=== PATIENT | male | born 1980 | race Caucasian/White ===

== ENCOUNTER 2017-09-29 11:22 | Emergency (ER) | payer OTHER ==
[2017-09-29 11:25] VITALS: TEMP 37.1
[2017-09-29] MEDS ORDERED: KETOROLAC TROMETHAMINE 30 MG/ML VIAL IV STA (11:41)
[2017-09-29] MEDS ORDERED: ASPIRIN 81 MG CHEW PO STA (11:41)
[2017-09-29 12:13] LABS: BASO % 0.4 %; BASO ABS # 0.03 K/uL (0-0.2); COMPLETE YES; EOS % 3.7 %; HEMATOCRIT 45.6 % (42-52); IG% 0.4 %; LYMPH % 36.6 %; MEAN CELL VOLUME 84.8 fL (80-100); MEAN CORPUSCULAR HEMOGLOBIN 31.2 pg (25-34); MEAN CORPUSCULAR HGB CONC 36.8 g/dl (32-36); MEAN PLATELET VOLUME 10.8 fL (7.4-10.4); MONO % 5.9 %; PLATELET COUNT 158 K/uL (130-400); RED BLOOD COUNT 5.38 M/uL (4.7-6.1); WHITE BLOOD COUNT 7.93 K/uL (4.8-10.8)
[2017-09-29 12:32] LABS: BLOOD UREA NITROGEN 13 mg/dl (7-18); BUN/CREATININE RATIO 14.7 (10-20); CALCIUM 8.9 mg/dl (8.5-10.1); CARBON DIOXIDE 29 mmol/L (21-32); CHLORIDE 103 mmol/L (98-107); CREATININE 0.85 mg/dl (0.60-1.40); GLUCOSE 123 mg/dl (70-99); POTASSIUM 3.3 mmol/L (3.5-5.1); SODIUM 137 mmol/L (136-145)
--- NOTE | 2017-09-29 12:55 | DIAGNOSTIC IMAGING REPORT ---
CHEST ONE VIEW PORTABLE HISTORY: 37 years-old Male Chest Pain acute atypical chest pain COMPARISON: None available TECHNIQUE: Portable upright AP view of the chest FINDINGS: Cardiomediastinal and hilar silhouettes are within normal limits. No pneumothorax, pleural effusion, focal airspace consolidation or overt pulmonary edema. The bones of the chest are grossly intact. IMPRESSION: No acute cardiopulmonary process. The above report was generated using voice recognition software. It may contain grammatical, syntax or spelling errors. Electronically signed by: Bryant Rae M.D. 09/29/2017 12:53 PM Dictated Date/Time: 09/29/2017 12:53 PM
[2017-09-29 14:14] VITALS: BP 136/98; PULSE 96; O2SAT 99
--- NOTE | 2017-09-29 16:20 | EMERGENCY ROOM VISIT NOTE ---
History Report prepared by Waldo[place]savannah: Florence Montana Under the Supervision of: Dr. Hansel Chirinos D.O. First contact with patient: 11:28 Chief Complaint: CHEST PAIN Stated Complaint: CHEST PAIN, HARD TIME BREATHING, FAST HEARTRATE History of Present Illness The patient is a 37 year old male who presents to the Emergency Room with complaints of worsening left-sided chest pain that began 2 days ago. The patient is [place] speaking and the history is obtained with the help of his employer who acted as his spanish interpreter/translator. The patient has been feeling lightheaded for the past 2 days with pressure in his chest and intermittent palpitations. He has also been short of breath. Yesterday his symptoms worsened. The patient was unable to sleep throughout the night last night due to his symptoms. He notes that there is no change in his pain with exertion. He rates his current pain as a 7/10 in severity. Pt denies headache, change in vision, fevers, cough , cold symptoms, nausea, vomiting, abdominal pain, diarrhea, pain with urination , and melena. He denies any pain radiating into his arm or his jaw. He denies any modifying factors. He has never had symptoms like this before. The patient has a personal history of hypertension but has not been taking his medications for this. Patient denies diabetes, hyperlipidemia, CAD, history of sudden at a young age, and smoking. Patient denies swelling of calves, recent trips, history of immobilization or recent surgery, prior history of DVT, hemoptysis, history of malignancy, or control/estrogen use. Source of History: patient, other (employer) Onset: 2 days [employer] Position: chest (left) Symptom Intensity: 7/10 Quality: pressure Timing: worsening Associated Symptoms: + SOB, No fevers, No headache, No cough, No nausea, No vomiting, No abdominal pain, No melena, No diarrhea, No urinary symptoms Note: Pt reports lightheadedness and heart palpitations. Pt denies changes in vision, cold symptoms. Review of Systems See HPI for pertinent positives & negatives. A total of 10 systems reviewed and were otherwise negative. Past Medical & Surgical Medical Problems: (1) HTN (hypertension) Family History Diabetes mellitus FH: hyperlipidemia Social History Smoking Status: Never Smoker Occupation Status: employed Current/Historical Medications No Active Prescriptions or Reported Meds Allergies Coded Allergies: No Known Allergies (Unverified , 09/29/17) Physical Exam Vital Signs Date Time Temp Pulse Resp B/P (MAP) Pulse Ox O2 Delivery O2 Flow Rate FiO2 09/29/17 14:14 96 18 136/98 99 09/29/17 12:24 65 18 155/86 98 Room Air 09/29/17 12:09 74 09/29/17 11:43 79 18 155/99 98 Room Air 09/29/17 11:40 Room Air 09/29/17 11:25 37.1 75 16 168/98 99 Room Air Physical Exam GENERAL: Sitting up in bed, alert, well appearing, well nourished, no distress, non-toxic. [place] speaking. EYE EXAM: Normal conjunctiva. OROPHARYNX: no exudate, no erythema, lips, buccal mucosa, and tongue normal and mucous membranes are moist NECK: supple, no nuchal rigidity, no adenopathy, non-tender LUNGS: Clear to auscultation. Normal chest wall mechanics HEART: no murmurs, S1 normal and S2 normal ABDOMEN: abdomen soft, non-tender, normo-active bowel sounds, no masses, no rebound or guarding. BACK: Back is symmetrical on inspection and there is no deformity, no midline tenderness, no CVA tenderness. SKIN: no rashes and no bruising UPPER EXTREMITIES: upper extremities radial pulses are equal bilaterally. LOWER EXTREMITIES: No pitting edema. Calves are equal bilaterally. NEURO EXAM: Normal sensorium, cranial nerves II-XII grossly intact, normal speech, no gross weakness of arms, no gross weakness of legs. Medical Decision & Procedures ER Provider Diagnostic Interpretation: Radiology results as stated below per my review and the radiologist's interpretation: CHEST ONE VIEW PORTABLE HISTORY: 37 years-old Male Chest Pain acute atypical chest pain COMPARISON: None available TECHNIQUE: Portable upright AP view of the chest FINDINGS: Cardiomediastinal and hilar silhouettes are within normal limits. No pneumothorax, pleural effusion, focal airspace consolidation or overt pulmonary edema. The bones of the chest are grossly intact. IMPRESSION: No acute cardiopulmonary process. The above report was generated using voice recognition software. It may contain grammatical, syntax or spelling errors. Electronically signed by: Bryant Rae M.D. 09/29/2017 12:53 PM Dictated Date/Time: 09/29/2017 12:53 PM Laboratory Results 09/29/17 11:50 Red Blood Count 5.38, Mean Corpuscular Volume 84.8, Mean Corpuscular Hemoglobin 31.2, Mean Corpuscular Hemoglobin Concent 36.8, Mean Platelet Volume 10.8, Neutrophils (%) (Auto) 53.0, Lymphocytes (%) (Auto) 36.6, Monocytes (%) (Auto) 5.9, Eosinophils (%) (Auto) 3.7, Basophils (%) (Auto) 0.4, Neutrophils # (Auto) 4.21, Lymphocytes # (Auto) 2.90, Monocytes # (Auto) 0.47, Eosinophils # (Auto) 0.29, Basophils # (Auto) 0.03 09/29/17 11:50 Test 09/29/17 11:50 White Blood Count 7.93 K/uL (4.8-10.8) Red Blood Count 5.38 M/uL (4.7-6.1) Hemoglobin 16.8 g/dL (14.0-18.0) Hematocrit 45.6 % (42-52) Mean Corpuscular Volume 84.8 fL (80-100) Mean Corpuscular Hemoglobin 31.2 pg (25-34) Mean Corpuscular Hemoglobin Concent 36.8 g/dl (32-36) Platelet Count 158 K/uL (130-400) Mean Platelet Volume 10.8 fL (7.4-10.4) Neutrophils (%) (Auto) 53.0 % Lymphocytes (%) (Auto) 36.6 % Monocytes (%) (Auto) 5.9 % Eosinophils (%) (Auto) 3.7 % Basophils (%) (Auto) 0.4 % Neutrophils # (Auto) 4.21 K/uL (1.4-6.5) Lymphocytes # (Auto) 2.90 K/uL (1.2-3.4) Monocytes # (Auto) 0.47 K/uL (0.11-0.59) Eosinophils # (Auto) 0.29 K/uL (0-0.5) Basophils # (Auto) 0.03 K/uL (0-0.2) RDW Standard Deviation 39.7 fL (36.4-46.3) RDW Coefficient of Variation 13.0 % (11.5-14.5) Immature Granulocyte % (Auto) 0.4 % Immature Granulocyte # (Auto) 0.03 K/uL (0.00-0.02) D-Dimer 270 ug/L FEU (0-500) Anion Gap 5.0 mmol/L (3-11) Estimated GFR () 129.0 Estimated GFR (Non- 111.3 BUN/Creatinine Ratio 14.7 (10-20) Calcium Level 8.9 mg/dl (8.5-10.1) Troponin I < 0.015 ng/ml (0-0.045) Laboratory results per my review. Medications Administered Medications (Trade) Dose Ordered Sig/Loki Route Start Time Stop Time Status Last Admin Dose Admin Aspirin (Aspirin Chew) 324 mg NOW STAT PO 09/29/17 11:41 09/29/17 11:43 DC 09/29/17 11:59 324 MG Ketorolac Tromethamine (Toradol Inj) 30 mg NOW STAT IV 09/29/17 11:41 09/29/17 11:43 DC 09/29/17 11:58 30 MG ECG Indication: chest pain Rate (beats per minute): 76 Rhythm: normal sinus Findings: no ectopy, other (Normal axis and normal intervals) ED Course ED COURSE: Vital signs were reviewed and showed hypertensive. The patients medical record was reviewed The above diagnostic studies were performed and reviewed. ED treatments and interventions as stated above. 1129: The patient was evaluated in room B3. A complete history and physical examination was performed. 1141: Ordered Toradol 30 mg IV and Aspirin 324 mg PO 1215: I reassessed the patient and he is pain free. 1300: The patient is still pain-free at this time. 1400 I reassessed the patient at this time. He is feeling better and resting comfortably. 1403: Upon reevaluation, the patient is doing well. I discussed my findings with the patient and he understands and agrees with the treatment plan. Based on the patients age, coexisting illnesses, exam and lab findings the decision to treat as an outpatient was made. The patient remained stable while under my care. The patient appeared well at the time of discharge. Medical Decision Differential diagnoses includes but is not limited to acute coronary syndrome, myocardial infarction, pericarditis, pulmonary embolus, aortic dissection, pneumonia, pneumothorax, musculoskeletal, shingles, esophageal. Patient is a 37-year-old male that presents to ER for chest pain which describes as sharp in nature. It is worse on palpation along with twisting turning bending. It was clearly reproducible. He has had mild shortness of breath. Pain is been present for greater than 24 hours. CBC along with BMP and troponin was negative. D-dimer was negative. EKG was nondiagnostic. Pain was relieved with Toradol. Patient felt significant better was discharged follow-up with PCP with muscle skeletal chest pain. Discussed with Pt concerning signs and symptoms to watch out for. Pt was instructed to follow up with their PCP and discussed with the patient their option to return to the ED at anytime for persistent or worsening symptoms. The appropriate anticipatory guidance and out-patient management, including indications for return to the emergency department, were explained at length to the patient and understood. Medication Reconcilliation Current Medication List: was personally reviewed by me Blood Pressure Screening Patient's blood pressure: Elevated blood pressure Blood pressure disposition: Elevated BP felt to be situational Impression Primary Impression: Precordial chest pain Scribe Attestation The scribe's documentation has been prepared under my direction and personally reviewed by me in its entirety. I confirm that the note above accurately reflects all work, treatment, procedures, and medical decision making performed by me. Departure Information Dispostion Home / Self-Care Prescriptions No Active Prescriptions or Reported Meds Referrals No Doctor, Assigned (PCP) Forms Call Back Authorization, HOME CARE DOCUMENTATION FORM, IMPORTANT VISIT INFORMATION Patient Instructions Chest Pain - [facility], [facility] Additional Instructions Please follow up with your primary care doctor with in the next 24 hours. Any worsening of your symptoms, please return to the ED immediately. This includes any fevers greater than 100.4, worsening pain, chest pain, shortness breath, persistent nausea, vomiting, unable to eat or drink, or any other concerning signs or symptoms from your standpoint. Please take Tylenol or Motrin as needed for pain.
== END 2017-09-29 14:41 | disposition home or self-care (01) ==
LOC: C.EDB 11:25
DX: R07.2 Precordial pain (principal); R06.02 Shortness of breath; I10 Essential (primary) hypertension; Z83.3 Family history of diabetes mellitus; Z83.49 Family history of other endocrine, nutritional and metabolic diseases